=== PATIENT | male | born 1970 | race Caucasian/White ===

== ENCOUNTER → 2020-08-13 08:42 | Outpatient (BNVA) | payer MEDICAID, SELFPAY | PROVIDERS: PCP Internal Medicine; Visit Provider Physician Assistant | DX: Z76.89 Persons encountering health services in other specified circumstances (principal) ==

== ENCOUNTER → 2020-10-21 12:03 | Outpatient (BNVA) | payer MEDICAID, SELFPAY | PROVIDERS: Visit Provider Physician Assistant ==

== ENCOUNTER 2020-12-03 11:44 | Day surgery (SDC) | payer MEDICAID, SELFPAY ==
--- NOTE | 2020-12-02 09:29 | P.CONAN_ITS ---
Documented by User: Aracelis Rodriguez 12/07/20 11:03 HPI - Anesthesia Eval Consult details Narrative: 50yo M for Colonoscopy PMFSH Active Problems Active Problems: All Active Problems (Updated 10/01/20 @ 08:26 by Cayla High) History of colonoscopy (Acute) Past Medical History Medical History (Updated 12/03/20 @ 13:48 by Pietro Sanchez MD) Hand abrasion No significant past medical history Family History Family History Father No problems noted. Surgical History Surgical History History of hand surgery Hx of arthroscopy of left knee Hx of colonoscopy Social History Social History Household Members: None Alcohol intake: never Smoking Status: Former smoker Years Smoked: 20 Current occupational status: employed Current occupation: Senior Mechanical Design Engineer Meds Allergies Allergy/AdvReac Type Severity Reaction Status Date / Time shrimp [SHRIMP] Allergy Intermediate HIVES Verified 11/30/20 08:15 Home Medications Medication Instructions Recorded Confirmed Last Taken Type diphenhydramine HCl 25 mg capsule 25 mg PO BEDTIME 10/21/20 12/03/20 12/03/20 10:30 History Exam Exam Date and Time: December 02, [id number] Assessment and Plan Assessment Anesthesia Assessment: Chart Reviewed Documented by User: Demetrius Atkins MD 12/08/20 08:31 PMFSH Past Medical History Medical History (Updated 12/03/20 @ 13:48 by Pietro Sanchez MD) Hand abrasion No significant past medical history Family History Family History Father No problems noted. Surgical History Surgical History History of hand surgery Hx of arthroscopy of left knee Hx of colonoscopy Social History Social History Household Members: None Alcohol intake: never Smoking Status: Former smoker Years Smoked: 20 Current occupational status: employed Current occupation: Senior Mechanical Design Engineer Meds Allergies Allergy/AdvReac Type Severity Reaction Status Date / Time shrimp [SHRIMP] Allergy Intermediate HIVES Verified 11/30/20 08:15 Home Medications Medication Instructions Recorded Confirmed Last Taken Type diphenhydramine HCl 25 mg capsule 25 mg PO BEDTIME 10/21/20 12/03/20 12/03/20 10:30 History Exam Airway Mallampati Class: II TM Dist: >3cm Assessment and Plan Assessment Anesthesia Assessment: Anesthesia Plan Discussed and Chart Reviewed Final Anesthetic Review NPO: Yes ASA Class: II Final Preanesthetic Review: No Changes in Pt Med Stat, Meds/Allgs Chart Reviewed, Consent Obtained/Reviewed and Anes Risks/Benef Reviewed Patient Risk: Low Procedure Risk: Low Anesthetic Plan Anesthetic Plan: MAC: Disposition: Standard PACU
[2020-12-03 11:54] VITALS: BMI 25.7
--- NOTE | 2020-12-03 12:05 | MHC.SHP ---
Pre-Procedural Eval Section B Chief Complaint: Screening Details of Present Illness: prior colonoscopy with poor prep Relevant Family History (Specify if Yes): No Relevant Social History: None Present Medications: see Short Stay Collaborative assessment Medical History: Significant History (History of hand surgery Hx of arthroscopy of left knee Hx of colonoscopy) History of Previous Operations: Relevant previous surgery/procedure and date(s) Allergies: Allergies Allergy/AdvReac Type Severity Reaction Status Date / Time shrimp [SHRIMP] Allergy Intermediate HIVES Verified 11/30/20 08:15 Review of Systems Sugical H&P ROS: Negative: Constitution, Cardiovascular, Respiratory, Neurological, Psychiatric, Hem-Onc, Allergic/Immunologic, Gastrointestinal, Genitourinary, Musculoskeletal, Integumentary, Endocrine and Eyes/Ears/Nose/Throat Exam Surgical H&P Exam: Normal: HEENT, Normal: Heart, Normal: Lungs, Normal: Extremities, Normal: Abdomen, Normal: Skin and Normal: Neurological Plan Diagnosis/Plan: Unchanged I have reviewed the history and physical and performed a pertinent physical examination on my patient. No changes have occurred unless specified.
[2020-12-03 12:09] VITALS: BP 131/60; PULSE 81; RESP 16; TEMP 36.8; O2SAT 97
[2020-12-03] MEDS: Lactated Ringers 1,000 ML 100 ML IVCONT (12:25)
--- NOTE | 2020-12-03 12:26 | PC.NURSE ---
Patient finished 75% of prep. Output is clear water, no solids. Dr. Sanchez notified. No prep needed. Okay to proceed.
--- NOTE | 2020-12-03 13:01 | P.BOP_ITS ---
Brief Operative Note Date of Service: 12/03/20 Pre-op diagnosis: hx of colonoscopy with poor prep Post-op diagnosis: same Procedure: see op note Surgeon: Pietro Sanchez MD Anesthesia: MAC Was an Big Data Admin used for this Procedure?: No Estimated blood loss (mL): 0 Condition: stable Disposition: PACU
--- NOTE | 2020-12-03 13:02 | P.OP_ITS ---
Operative Note Operative Note Date of Service: 12/03/20 Narrative: Operative Information Procedure Description: Colonoscopy COLONOSCOPY Instrument: Olympus variable stiffness pediatric scope 190L Colonoscopy Monitoring: Vital signs and clinical assessment, continuous EKG monitoring, Pulse oximetry, Carbon Dioxide monitoring and blood pressure monitoring were done throughout the procedure. Colon withdrawal time was 10 minutes. Procedure: The patient was placed in the left lateral decubitis position and pre-procedure medications were administered. After a digital rectal examination of the ano-rectum, the video colonoscope was inserted into the rectum and advanced through the colon to the cecum/TI. The colonoscope was slowly withdrawn in a retrograde panoramic fashion and the colon mucosa was carefully examined including a retroflexed view of the rectum. Findings and interventions are described below. Procedure Difficulty: easy Findings: Terminal Ileum-normal Cecum:normal Ascending Colon: normal Transverse Colon -normal Descending Colon:normal Sigmoid Colon: normal Rectum: Retroflexion with large internal hemorrhoids, grade II with mild inflammation Anorectum - normal Colon preparation: [place] Bowel Preparation Scale Right colon; 3 Transverse colon: 3 Left colon; 3 (0 = Unprepared colon segment with mucosa not seen due to solid stool that cannot be cleared. 1 = Portion of mucosa of the colon segment seen, but other areas of the colon segment not well seen due to staining, residual stool and/or opaque liquid. 2 = Minor amount of residual staining, small fragments of stool and/or opaque liquid, but mucosa of colon segment seen well. 3 = Entire mucosa of colon segment seen well with no residual staining, small fragments of stool or opaque liquid) Impression and Post Procedure Diagnosis: internal hemorrhoids Plan: High fiber diet leaflet Avoid straining at stool, epsom salts and sitz bath, anusol supps or cream Repeat Colonoscopy in 10 years or earlier if clinically indicated--refer Dr Groves for symptomatic hemorrhoids Above findings were reviewed with the patient and relevant handouts were provided if indicated.
[2020-12-03 13:50] VITALS: BP 89/48; PULSE 81; RESP 16; TEMP 36.2; O2SAT 96
[2020-12-03 14:05] VITALS: BP 97/55; PULSE 76; RESP 18; O2SAT 98
[2020-12-03 14:19] VITALS: BP 117/68; PULSE 84; RESP 18; O2SAT 98
== END 2020-12-03 15:04 | disposition home or self-care (01) ==
PROVIDERS: Visit Provider Internal Medicine Gastroenterology
PROC: 0DJD8ZZ Inspection of Lower Intestinal Tract, Via Natural or Artificial Opening Endoscopic (ICD-10-PCS; CPT 45378; principal; 2020-12-03 12:50)
DX: Z12.11 Encounter for screening for malignant neoplasm of colon (principal); K64.1 Second degree hemorrhoids; Z87.891 Personal history of nicotine dependence
CPT/HCPCS: 45378

== ENCOUNTER 2021-02-16 10:39 | Outpatient (REF) | payer MEDICAID, SELFPAY | END 2021-02-16 10:40 | disposition home or self-care (01) | LOC: HO.LAB 10:39 | PROVIDERS: PCP Internal Medicine; Visit Provider Internal Medicine | DX: Z20.822 Contact with and (suspected) exposure to COVID-19 (principal) | CPT/HCPCS: C9803; U0003; U0005 ==

== ENCOUNTER 2021-03-01 13:02 | Outpatient (REF) | payer MEDICAID, SELFPAY | END 2021-03-01 13:03 | disposition home or self-care (01) | LOC: HO.LAB 13:02 | PROVIDERS: Visit Provider Internal Medicine | DX: Z20.822 Contact with and (suspected) exposure to COVID-19 (principal) | CPT/HCPCS: C9803; U0003; U0005 ==

== ENCOUNTER 2021-07-28 13:07 | Outpatient (REF) | payer MEDICAID, SELFPAY ==
[2021-07-28 14:03] LABS: COVID-19 Test Positive (Negative)
== END 2021-07-28 13:08 | disposition home or self-care (01) ==
LOC: HO.LAB 13:07
PROVIDERS: Visit Provider Internal Medicine
DX: Z20.822 Contact with and (suspected) exposure to COVID-19 (principal)
CPT/HCPCS: 87635; C9803

== ENCOUNTER → 2021-09-01 15:34 | Outpatient (BNVA) | payer MEDICAID, SELFPAY | PROVIDERS: PCP Internal Medicine; Referring Provider Internal Medicine; Visit Provider Surgery | DX: K64.9 Unspecified hemorrhoids (principal) | CPT/HCPCS: 46600; 99202 ==

== ENCOUNTER 2024-06-26 10:14 | Outpatient (REF) | payer MEDICAID, SELFPAY ==
[2024-06-27 08:03] LABS: HIV AB/AG Nonreactive (Nonreactive); HIV Num 1 0.07 S/CO (0.00-0.99)
[2024-06-28 14:13] LABS: HCV Log PCR <1.18 NOT DETECTED Log IU/mL (NOT DETECTED); HepC Viral Load <15 NOT DETECTED IU/mL (NOT DETECTED)
== END 2024-06-26 10:15 | disposition home or self-care (01) ==
LOC: HO.CHCLDS 10:14
PROVIDERS: Visit Provider Internal Medicine
DX: Z00.00 Encounter for general adult medical examination without abnormal findings (principal); Z11.59 Encounter for screening for other viral diseases
CPT/HCPCS: 36415; 87389; 87522